=== PATIENT | male | born 1990 | race Caucasian/White ===

== ENCOUNTER 2020-12-12 11:06 | Emergency (ER) | payer OTHER ==
[2020-12-12 12:26] LABS: HEMOGLOBIN 16.5 gm/dl (14.0-17.5); RED BLOOD COUNT 5.33 M/UL (4.20-5.50); WHITE BLOOD COUNT 6.2 K/UL (4.5-11.0)
[2020-12-12 12:47] LABS: BUN/CREATININE RATIO 7 (0-10)
[2020-12-12] MEDS ORDERED: TORADOL 10 MG T10 MG PO (13:59)
[2020-12-12] MEDS ORDERED: FLOMAX 0.4 MG0.4 MG PO (13:59)
[2020-12-12] MEDS ORDERED: ONDANSETRON ODT4 MG SL (13:59)
[2020-12-12] MEDS ORDERED: CEFUROXIME500 MG PO (13:59)
== END 2020-12-12 14:08 | disposition home or self-care (01) ==
LOC: ER1 11:06
PROVIDERS: Physician Assistant
DX: N13.2 Hydronephrosis with renal and ureteral calculous obstruction (principal); R82.81 Pyuria; F17.200 Nicotine dependence, unspecified, uncomplicated; K76.0 Fatty (change of) liver, not elsewhere classified; Z87.442 Personal history of urinary calculi
CPT/HCPCS: 80053; 81001; 85025; 99284; J1885

== ENCOUNTER 2021-02-23 09:01 | Observation (INO) | payer OTHER ==
[~2021-02-23] VITALS: Ht 195.6 cm; Wt 132.9 kg
[~2021-02-23 09:01] MED LIST: CEFUROXIME500 MG PO; FLOMAX 0.4 MG0.4 MG PO; ONDANSETRON ODT4 MG SL; TORADOL 10 MG T10 MG PO
[2021-02-23 10:21] LABS: HEMOGLOBIN 17.8 gm/dl (14.0-17.5); RED BLOOD COUNT 5.68 M/UL (4.20-5.50)
[2021-02-23 11:04] LABS: BUN/CREATININE RATIO 11 (0-10)
--- NOTE | 2021-02-23 21:00 | NUR ---
SCUDS APPLIED TO PT ONCE PT ARRIVED TO ROOM 4101 FROM PACU.
[2021-02-24] MEDS ORDERED: HYDROCODON-ACE1 EAC2 PO (08:04)
[2021-02-24] MEDS ORDERED: COLACE100 MG PO (08:04)
== END 2021-02-24 14:07 | disposition home or self-care (01) ==
LOC: ER1 09:01 → CDU 13:21 → MED SURG 4 20:57
PROVIDERS: Physician Assistant; ADMIT Surgery
DX: K35.80 Unspecified acute appendicitis (principal); F17.290 Nicotine dependence, other tobacco product, uncomplicated; Z20.822 Contact with and (suspected) exposure to COVID-19
CPT/HCPCS: 80053; 81001; 83690; 85025; 96374; 96375; 96376; 99285; G0378; J1100; J2001; J2270; J2405; J2543; J2704; J2710; J3010; J7030; Q9967; U0002

== ENCOUNTER 2021-03-27 19:37 | Emergency (ER) | payer OTHER ==
[~2021-03-27 19:37] MED LIST changes: +COLACE100 MG PO; +HYDROCODON-ACE1 EAC2 PO
== END 2021-03-27 20:22 | disposition left against medical advice (07) ==
LOC: ER1 19:37
DX: Z53.21 Procedure and treatment not carried out due to patient leaving prior to being seen by health care provider (principal)